=== PATIENT | female | born 1975 | race Caucasian/White ===

== ENCOUNTER → 2018-08-28 | Outpatient (CLI) | payer BC, SELFPAY ==
[2018-08-28 10:11] VITALS: BMI 34.3
[2018-08-28 14:15] LABS: Mucous, Urine 0 SEEN /hpf (<or=2+)
[2018-08-28 14:22] LABS: Color, Urine Yellow (Yellow); Glucose, Dipstick Normal (Normal); Ketone-Dipstick Negative (Negative); Leukocyte Esterase-Dipstick 500 /ul (Negative); Nitrite-Dipstick Positive (Negative); Occult Blood-Urine 250 /ul (Negative); Protein-Dipstick 100 mg/dl (Negative); Specific Gravity, Urine 1.015 (1.002-1.030); Urine Bilirubin Dipstick Negative (Negative); Urine Clarity Cloudy (Clear); Urine Urobilinogen Normal (Normal); Urine pH 6.5 (5.0 - 8.0)
[2018-08-28 14:29] LABS: Bacteria 3+ /hpf (None Seen); Red Blood Cells-Urine 5-10 SEEN /hpf (0-5); Squamous Epithelial Cells - UA 0-5 SEEN /hpf (5-10); White Blood Cells 50-100 SEEN /hpf (0-5)
== END | disposition home or self-care (01) ==
PROVIDERS: Referring Provider Physician Assistant Medical; Visit Provider Physician Assistant Medical
DX: N30.01 Acute cystitis with hematuria (principal)
CPT/HCPCS: 81001; 87077; 87086; 87088; 87186

== ENCOUNTER → 2018-09-08 | Outpatient (CLI) | payer BC, SELFPAY ==
[2018-09-08 09:46] VITALS: BMI 34.3
[2018-09-08 14:50] LABS: Mucous, Urine 0 SEEN /hpf (<or=2+)
[2018-09-08 14:56] LABS: Color, Urine Yellow (Yellow); Glucose, Dipstick Normal (Normal); Ketone-Dipstick Negative (Negative); Leukocyte Esterase-Dipstick 500 /ul (Negative); Nitrite-Dipstick Positive (Negative); Occult Blood-Urine 150 /ul (Negative); Protein-Dipstick 100 mg/dl (Negative); Urine Bilirubin Dipstick Negative (Negative); Urine Clarity Cloudy (Clear); Urine Urobilinogen Normal (Normal)
[2018-09-08 15:02] LABS: White Blood Cells >100 SEEN /hpf (0-5)
[2018-09-08 15:03] LABS: Red Blood Cells-Urine 5-10 SEEN /hpf (0-5)
[2018-09-08 15:04] LABS: Bacteria 2+ /hpf (None Seen); Squamous Epithelial Cells - UA 5-10 SEEN /hpf (5-10)
== END | disposition home or self-care (01) ==
LOC: LABSPEC 14:45
PROVIDERS: Referring Provider Physician Assistant Medical; Visit Provider Physician Assistant Medical
DX: N39.0 Urinary tract infection, site not specified (principal)
CPT/HCPCS: 81001; 87077; 87086; 87088; 87186

== ENCOUNTER → 2019-02-18 16:08 | Outpatient (CLI) | payer BC, SELFPAY ==
[2019-02-18 09:18] VITALS: BMI 34.3
[2019-02-18 16:11] LABS: Mucous, Urine 0 SEEN /hpf (<or=2+)
[2019-02-18 16:38] LABS: Color, Urine Yellow (Yellow); Glucose, Dipstick Normal (Normal); Ketone-Dipstick 5 mg/dl (Negative); Leukocyte Esterase-Dipstick 500 /ul (Negative); Nitrite-Dipstick Positive (Negative); Occult Blood-Urine 50 /ul (Negative); Protein-Dipstick 30 mg/dl (Negative); Urine Bilirubin Dipstick Negative (Negative); Urine Clarity Cloudy (Clear); Urine Urobilinogen Normal (Normal)
[2019-02-18 17:19] LABS: Bacteria 2+ /hpf (None Seen); Red Blood Cells-Urine 5-10 SEEN /hpf (0-5); Squamous Epithelial Cells - UA 0-5 SEEN /hpf (5-10); White Blood Cells >100 SEEN /hpf (0-5)
== END ==
PROVIDERS: Referring Provider Physician Assistant Medical; Visit Provider Physician Assistant Medical
DX: R30.0 Dysuria (principal)
CPT/HCPCS: 81001; 87086; 87088; 87186

== ENCOUNTER 2021-07-31 10:05 | Emergency (ER) | payer MEDICAID, SELFPAY ==
[2021-07-31 10:07] VITALS: BP 142/124; PULSE 95; RESP 22; TEMP 36.6; O2SAT 99; BMI 41.0
--- NOTE | 2021-07-31 10:26 | EDS_ITS ---
HPI History of Present Illness HPI Narrative: Patient presents with right hip pain that has been getting worse over the past couple weeks. Patient states that it got worse over the past 2 days. Patient states today she was bending and she felt a pop in her right hip. Patient states the pain is been constant. Patient describes her pain as burning. Patient states it is mainly over the posterior aspect of her right hip. Patient states it is worse with weightbearing. Patient admits to some tingling going down her right leg. Patient denies any weakness. Patient denies any bowel or bladder changes. Patient denies any saddle anesthesia. Chief Complaint: Lower Extremity Injury Informant: patient Onset/Context/Timing Onset: Weeks Context: Gradual Onset Timing: Continuous Quality of Pain: Burning Location: Right hip Worsened by: Weightbearing Relieved by: Nothing Associated Symptoms Associated Symptoms: Positive for Parasthesia; Negative for Weakness or Loss of Funtion PFSH [facility] Medical History Acute maxillary sinusitis, unspecified Home Medications norgestimate 0.25 mg-ethinyl estradiol 35 mcg tablet (Sprintec (28)) 1 tab PO DAILY 02/11/18 [History Last Taken Unknown] prednisone 10 mg tablet See Rx Instructions PO DAILY #30 tabs 12/27/20 [Rx Last Taken Unknown] hydrocodone-acetaminophen 5-325mg 5mg-325mg 1 tab PO Q6H PRN PRN Pain 3 days #10 TABLETS 07/31/21 [Rx Last Taken Unknown] Allergy/AdvReac Type Severity Reaction Status Date / Time No Known Allergies Allergy Verified 07/31/21 10:07 Surgical History History of delivery Social History Smoking Status: Never smoker alcohol intake: never ROS ROS ED Constitutional Constitutional ED: Denies chills or fever(s) Eyes Eyes: Denies blurry vision or change in vision ENT ENT ED: Denies rhinorrhea or sore throat Cardiovascular Cardiovascular: Denies chest pain or palpitations Respiratory/Chest Respiratory/Chest: Denies cough or dyspnea Gastrointestinal Gastrointestinal: Denies nausea or vomiting Genitourinary Genitourinary ED: Denies dysuria or hematuria Musculoskeletal Musculoskeletal: Reports back pain and neck pain Integumentary Denies abscess or rash Neurologic Neurologic: Reports paresthesias RLE; Denies headache(s) or weakness Allergic/Immunologic Allergic/Immunologic ED: Denies mouth swelling or urticaria EXAM Physical Exam Const Vital Signs: 07/31/21 10:07 Temperature 97.8 F Temperature Source Temporal Pulse Rate 95 Respiratory Rate 22 H Blood Pressure 142/124 H Blood Pressure Mean 130 Pulse Ox 99 Oxygen Delivery Method Room Air Positive well nourished, well developed and obese General Appearance ED: well developed Nutritional Appearance: obese HEENT Reports moist mucous membranes Neck full ROM Extremity Extremity Narrative: There is tenderness over the posterior lateral aspect of the right hip. There is no obvious deformity noted. Range of motion was limited in all motions of the right hip secondary to pain. Pedal pulses are equal bilaterally. Sensation was intact to light touch bilaterally in the lower extremities. Strength is 5/5 bilaterally in the lower extremities. General Extremety ED: Yes weight-bearing difficulty General Extremity: weight-bearing difficulty Neuro oriented x3, CN's II-XII intact bilaterally, moves all extremities and no sensory deficits noted Sensorium / Orientation: alert, oriented to person, oriented to place and orie nted to time Motor Exam: strength 5/5 throughout Psych mental status grossly normal MDM MDM MDM Narrative Medical decision making narrative: X-rays of the right hip were obtained. There are 3 views. On my interpretation, there is no acute fracture or dislocation. There some degenerative changes noted. Radiologist also interpreted the x-ray and agrees. Patient was given an injection of morphine here. Patient is feeling better on reevaluation. Patient was given a prescription for [place]. Patient was given crutches. Patient instructed to use ice to the area. Patient was instructed to follow-up with her primary care physician in 5 to 7 days. Patient understood and was agreeable with the plan. All questions were answered. Radiography Diagnostic Testing: Clinical Impression(s) from Imaging Studies Hip/Pelvis X-Ray 07/31/21 10:30 IMPRESSION: Sclerosis of the symphysis pubis. Electronically Signed: Abhilash Gaming MD at 11:50 EDT , Discharge Plan Triage Chief Complaint: Lower Extremity Injury ED Provider: Abhilash Martinez Dx/Rx/DC Orders Clinical Impression: Strain of right hip, Morbid obesity with BMI of 40.0-44.9, adult Instructions: ED Hip Strain Prescriptions: New hydrocodone-acetaminophen [hydrocodone-acetaminophen] 5-325 mg tablet 1 tab PO Q6H PRN PRN (Reason: Pain) 3 Days Qty: 10 0RF No Action norgestimate-ethinyl estradiol [Sprintec (28)] 0.25-35 mg-mcg tablet 1 tab PO DAILY prednisone 10 mg tablet See Rx Instructions PO DAILY Qty: 30 0RF Rx Instructions: 40 mg PO daily x 3 days, 30 mg PO daily x 3 days, 20 mg PO daily x 3 days, 10 mg PO daily x 3 days Primary Care Provider: Hiram Moreland Referrals: Hiram Moreland MD [Primary Care Provider] - 3-5 Days Disposition Disposition: Home, Self Care
--- NOTE | 2021-07-31 10:30 | RAD_ITS ---
STUDY: X-RAY - PELVIS AND RIGHT HIP REASON FOR EXAM: Female, 46 years old. Injury/Pain TECHNIQUE: 3 views of the pelvis and hip. COMPARISON: None. FINDINGS: There is a non-specific bowel gas pattern. Normal visualized soft tissue structures. Normal bilateral iliac wings, sacroiliac joints and visualized sacrum. Normal bilateral superior and inferior pubic rami. There are degenerative changes of the pubic symphysis with articular narrowing and sclerosis. Normal bilateral ischial tuberosities. Normal visualized femoral head. Normal acetabulum. Normal hip joint. RAD/HIP, UNI W/ Pelvis 2-3 Views IMPRESSION: Sclerosis of the symphysis pubis. Electronically Signed: Abhilash Gaming MD at 11:50 EDT ,
[2021-07-31] MEDS: Morphine 4 MG/ML Syringe IV (11:17)
[2021-07-31 13:15] VITALS: BP 118/67; PULSE 92; RESP 15; O2SAT 98
== END 2021-07-31 13:16 | disposition home or self-care (01) ==
PROVIDERS: Emergency Provider Emergency Medicine; PCP Family Medicine; Visit Provider Emergency Medicine
DX: S73.101A Unspecified sprain of right hip, initial encounter (principal); E66.01 Morbid (severe) obesity due to excess calories; Z68.41 Body mass index [BMI] 40.0-44.9, adult; X58.XXXA Exposure to other specified factors, initial encounter; Z23 Encounter for immunization
CPT/HCPCS: 73502; 90471; 96374; 99285; A4216

== ENCOUNTER → 2022-01-23 | Outpatient (CLI) | payer MEDICAID, SELFPAY ==
[2022-01-23 10:14] LABS: Mucous, Urine 0 SEEN /hpf (<or=2+); Red Blood Cells-Urine 0 SEEN /hpf (0-5)
[2022-01-23 10:34] LABS: Color, Urine Yellow (Yellow); Glucose, Dipstick Normal (Normal); Ketone-Dipstick 5 mg/dl (Negative); Leukocyte Esterase-Dipstick 500 /ul (Negative); Nitrite-Dipstick Positive (Negative); Occult Blood-Urine 250 /ul (Negative); Protein-Dipstick 100 mg/dl (Negative); Urine Bilirubin Dipstick Negative (Negative); Urine Clarity Turbid (Clear); Urine Urobilinogen Normal (Normal)
[2022-01-23 10:49] LABS: Squamous Epithelial Cells - UA 5-10 SEEN /hpf (5-10); White Blood Cells >100 SEEN /hpf (0-5)
[2022-01-23 10:50] LABS: Bacteria 2+ /hpf (None Seen)
== END | disposition home or self-care (01) ==
LOC: LABSPEC 10:07
PROVIDERS: PCP Family Medicine; Referring Provider Physician Assistant Surgical; Visit Provider Physician Assistant Surgical
DX: R30.0 Dysuria (principal)
CPT/HCPCS: 81001; 87077; 87086; 87088; 87186

== ENCOUNTER 2022-03-31 20:37 | Emergency (ER) | payer OTHER, MEDICAID, SELFPAY ==
[2022-03-31 20:38] VITALS: BP 125/113; PULSE 94; RESP 15; TEMP 36.5; O2SAT 98; BMI 39.5
--- NOTE | 2022-03-31 21:01 | US_ITS ---
EXAM: US ABDOMEN LIMITED, RIGHT UPPER QUADRANT CLINICAL INDICATION: PAIN TECHNIQUE: Real-time ultrasound of the right upper quadrant with image documentation. This report was created using [employer] report generation technology. COMPARISON: None. FINDINGS: LIVER: The liver measures 20.3 cm in length. The liver is increased in echogenicity. No intrahepatic biliary ductal dilation. GALLBLADDER: There is a large echogenic structure in the gallbladder compatible with a large gallstone. This measures 3.2 cm. Gallbladder wall measures 2 mm. The second smaller stone in the gallbladder neck. No pericholecystic fluid. Negative sonographic Kern''s sign. COMMON BILE DUCT: Common bile duct measures 4 mm. The proximal common bile duct is within normal limits for the patient''s age. PANCREAS: Unremarkable as visualized. No focal abnormality is demonstrated in the pancreas. No pancreatic ductal dilatation. RIGHT KIDNEY: The right kidney measures 10.8 x 4.8 x 4.9 cm. There is no hydronephrosis. No shadowing calculus. No focal lesion or perinephric collection is demonstrated. US/Gallbladder IMPRESSION: 1. Cholelithiasis with no sonographic evidence of cholecystitis. 2. Hepatomegaly. There is fatty infiltration of the liver. Electronically Signed: Anshul De León MD at 22:15 EST ,
[2022-03-31 21:15] LABS: Absolute Lymphocyte Count 2.31 X10^3/uL (0.83-4.51); Absolute Neutrophil Count 4.1 X10^3/uL (2.0-7.7); Basophil# 0.05 X10^3/uL; Basophil% 0.7 % (0-1); Eosinophil# 0.41 X10^3/uL; Eosinophils% 5.5 % (0-5); Hematocrit 38.2 % (37-47); Hemoglobin 12.5 g/dL (12.0-15.0); Lymphocyte # 2.31 X10^3/ul (0.83-4.51); Lymphocyte % 31.2 % (19-41); Mean Corp Hgb Conc 32.7 g/dL (32-36); Mean Corpuscular Volume 85.5 fL (81-99); Mean Platelet Vol. 9.7 fl (6.2-12.0); Monocyte# 0.52 X10^3/uL; NRBC Flagged by Analyzer 0 % (0-5); Neutrophil # 4.09 X10^3/uL (2.7-7.7); Neutrophil % 55.2 % (47-70); Platelet Count 344 K/mm3 (150-450); RBC Distribution Width CV 12.6 % (11.6-14.6); Red Blood Count 4.47 M/mm3 (4.2-5.4); White Blood Count 7.4 K/mm3 (4.4-11.0)
[2022-03-31 21:21] LABS: Internal QC Validated? YES +Cl - CLEAR BKGD; Pregnancy, Serum, hCG Quali. NEGATIVE Negative
[2022-03-31] MEDS: Ondansetron 4 MG/2 ML Vial IV (21:26)
[2022-03-31] MEDS: 0.9% Normal Saline 1,000 ML 1000 ML IV (21:26)
[2022-03-31] MEDS: Morphine 4 MG/ML Syringe IV (21:26)
[2022-03-31 21:31] LABS: ALB/GLOB Ratio 0.8 RATIO (0.9-2.4); AST(SGOT) 14 U/L (15-37); Alanine Aminotransfer ALT/SGPT 23 U/L (13-56); Albumin, Serum 3.1 g/dL (3.2-5.0); Alkaline Phosphatase 98 U/L (45-117); Anion Gap 11 (5-15); BUN 13 mg/dL (7-18); BUN/Creat Ratio 10.3 RATIO (10-20); Calcium,Total 9.2 mg/dL (8.5-10.1); Chloride 103 mmol/L (98-107); Creatinine, Serum 1.26 mg/dL (0.55-1.02); EST Glomerular Filtration Rate 49 mL/min (>60); Est Glom Filt Rate - Afr Amer 59 mL/min (>60); Estimated Creatinine Clearance 57.48 ml/min; Globulin 3.7 g/dL (2.2-4.2); Glucose 110 mg/dL (74-106); Lipase 174 U/L (73-393); Protein, Total 6.8 g/dL (6.4-8.2); Sodium Level 142 mmol/L (136-145)
--- NOTE | 2022-03-31 22:18 | ED.VIS.GI ---
HPI HPI - GI History of Present Illness Chief Complaint: Abd Pain Informant: patient Abdominal Pain/Flank Pain Onset: Today Context: Gradual Onset Timing: Continuous Quality: Sharp Location: RUQ Worsened by: Food Relieved by: Nothing Nausea/Vomiting/Emesis GI Symptom: Positive for Nausea; Negative for Vomiting Diarrhea/Melena/Hematochezia GI Symptom: Negative for Diarrhea, Melena or Hematochezia Associated Symptoms Associated Symptoms: Negative for Dysuria, Frequency or Hematuria Narrative Narrative: Patient presents with right upper quadrant abdominal pain that began tonight. Patient states that came on gradually. Patient states that her pain began approxi-2 hours after eating chili tonight. Patient states that her pain became worse when she laid down and tried to go to bed. Patient states her pain is over the right upper quadrant. Patient describes it as sharp. Patient denies any radiation of the pain. Patient states she had an episode of pain in her chest and pain between her shoulder blades yesterday but states this has resolved and she has not had any back pain or chest pain today. Patient admits to nausea but denies any vomiting. Patient denies any diarrhea, melena, or hematochezia. [facility] Medical History Acute maxillary sinusitis, unspecified Home Medications norgestimate 0.25 mg-ethinyl estradiol 35 mcg tablet (Sprintec (28)) 1 tab PO DAILY 02/11/18 [History Last Taken Unknown] hydrochlorothiazide 25 mg tablet 25 mg PO DAILY 03/31/22 [History Last Taken Unknown] hydrocodone-acetaminophen 5-325mg 5mg-325mg 1 tab PO Q6H PRN PRN Pain 3 days #10 TABLETS 03/31/22 [Rx Last Taken Unknown] ondansetron 4 mg disintegrating tablet 4 mg PO Q8H PRN PRN Nausea #10 tabs 03/31/22 [Rx Last Taken Unknown] Allergy/AdvReac Type Severity Reaction Status Date / Time No Known Allergies Allergy Verified 03/31/22 20:47 Surgical History History of delivery Social History Smoking Status: Never smoker alcohol intake: never ROS ROS ED Constitutional Constitutional ED: Denies chills or fever(s) Eyes Eyes: Denies blurry vision or change in vision ENT ENT ED: Denies rhinorrhea or sore throat Cardiovascular Cardiovascular: Reports chest pain; Denies palpitations Respiratory/Chest Respiratory/Chest: Denies cough or dyspnea Gastrointestinal Gastrointestinal: Reports abdominal pain and nausea; Denies vomiting Genitourinary Genitourinary ED: Denies dysuria or hematuria Musculoskeletal Musculoskeletal: Reports back pain; Denies neck pain Integumentary Denies abscess or rash Neurologic Neurologic: Denies headache(s) or weakness Allergic/Immunologic Allergic/Immunologic ED: Denies mouth swelling or urticaria EXAM Physical Exam Const Vital Signs: 03/31/22 20:38 Temperature 97.7 F L Temperature Source Temporal Pulse Rate 94 Respiratory Rate 15 Blood Pressure 125/113 H Blood Pressure Mean 117 Pulse Ox 98 Oxygen Delivery Method Room Air Positive well nourished, well developed and obese General Appearance ED: well developed and NAD Nutritional Appearance: obese HEENT Reports moist mucous membranes Neck supple and no JVD Resp normal respiratory effort and clear to auscultation bilaterally Cardio regular rate, regular rhythm and no murmurs GI normal to inspection, nondistended, normoactive bowel sounds Palpation: soft and tender epigastric, RUQ and Kern's sign; Negative for guarding or rebound tenderness present Extremity normal to inspection General Extremety ED: Negative for edema or tenderness General Extremity: Negative for edema Neuro oriented x3, CN's II-XII intact bilaterally and no sensory deficits noted Sensorium / Orientation: alert Motor Exam: strength 5/5 throughout Psych mental status grossly normal Skin no rashes or lesions noted MDM MDM MDM Narrative Medical decision making narrative: Differential diagnosis includes cholelithiasis/cholecystitis, peptic ulcer disease, duodenal ulcer, gastroenteritis, pyelonephritis, and pancreatitis. CBC will be obtained to assess for leukocytosis and anemia. Comprehensive metabolic profile will be obtained to assess for electrolyte abnormality, renal function, and hepatic function. Lipase will be obtained to assess for pancreatitis. Serum hCG will be obtained to assess for status. Right upper quadrant ultrasound will be obtained to assess for cholelithiasis and cholecystitis. Lab Data Attestation: I reviewed the patient's lab results. Lab results narrative: CBC was reviewed and was within normal limits. Comprehensive metabolic profile was reviewed. There is mild hypokalemia of 3.0. Creatinine was slightly elevated at 1.26. The remainder was within normal limits. Lipase was normal at 174. Serum hCG was reviewed and was negative. Labs: Laboratory Results - last 24 hr 03/31/22 03/31/22 03/31/22 21:08 21:08 21:08 WBC 7.4 RBC 4.47 Hgb 12.5 Hct 38.2 MCV 85.5 MCH 28.0 MCHC 32.7 RDW Std Deviation 39.0 RDW Coeff of Byron 12.6 Plt Count 344 MPV 9.7 Immature Gran % (Auto) 0.400 Neut % (Auto) 55.2 Lymph % (Auto) 31.2 Terrell % (Auto) 7.0 Eos % (Auto) 5.5 H Baso % (Auto) 0.7 Absolute Neuts (auto) 4.1 Absolute Lymphs (auto) 2.31 Nucleated RBC % 0 Sodium 142 Potassium 3.0 L Chloride 103 Carbon Dioxide 28.0 Anion Gap 11 BUN 13 Creatinine 1.26 H Estim Creat Clear Calc 57.48 Est GFR (MDRD) Af Amer 59 L Est GFR (MDRD) Non-Af 49 L BUN/Creatinine Ratio 10.3 Glucose 110 H Calcium 9.2 Total Bilirubin 0.20 AST 14 L ALT 23 Alkaline Phosphatase 98 Total Protein 6.8 Albumin 3.1 L Globulin 3.7 Albumin/Globulin Ratio 0.8 L Lipase 174 Serum , Qual NEGATIVE Radiography Diagnostic Testing: Clinical Impression(s) from Imaging Studies Gallbladder Ultrasound 03/31/22 21:01 IMPRESSION: 1. Cholelithiasis with no sonographic evidence of cholecystitis. 2. Hepatomegaly. There is fatty infiltration of the liver. Electronically Signed: Anshul De León MD at 22:15 EST , Right upper quadrant ultrasound was obtained. On my independent interpretation, there is cholelithiasis but no evidence of cholecystitis. There is no gallbladder wall thickening or dilation of the common bile duct. Radiologist also interpreted the x-ray. There is fatty infiltration of the liver. Treatment and Re-Evaluation Narrative: Patient was given IV fluids, morphine, and Zofran. Patient was feeling somewhat better on reevaluation. Patient was advised of her findings. Patient was advised that since her white blood cell count is normal and there is no evidence of acute cholecystitis on ultrasound, she does not need to be admitted to the hospital for emergent cholecystectomy. Patient was given a referral for general surgery for follow-up care for possible outpatient cholecystectomy. Patient was given prescription for [place] and Zofran. Patient was instructed to eat a bland diet. Patient was instructed to avoid fried foods, fatty foods, greasy foods. Patient was instructed return if worse in any way. Patient understood and was agreeable with the plan. All questions were answered. Discharge Plan Triage Chief Complaint: Abd Pain ED Provider: Abhilash Martinez Dx/Rx/DC Orders Clinical Impression: Right upper quadrant abdominal pain, Cholelithiasis Instructions: ED Abdominal Pain Gallstone Poss, ED Gallstones with Biliary Colic Prescriptions: New hydrocodone-acetaminophen [hydrocodone-acetaminophen] 5-325 mg tablet 1 tab PO Q6H PRN PRN (Reason: Pain) 3 Days Qty: 10 0RF ondansetron [ondansetron] 4 mg tablet,disintegrating 4 mg PO Q8H PRN PRN (Reason: Nausea) Qty: 10 0RF No Action norgestimate-ethinyl estradiol [Sprintec (28)] 0.25-35 mg-mcg tablet 1 tab PO DAILY hydrochlorothiazide 25 mg tablet 25 mg PO DAILY Label Comments: TAKE 1 TABLET BY MOUTH ONCE DAILY Primary Care Provider: Hiram Moreland Referrals: Hiram Moreland MD [Primary Care Provider] - 3-5 Days Suresh Patterson MD [Med Staff - Active Staff] - 3-5 Days Disposition Disposition: Home, Self Care
[2022-03-31 22:48] VITALS: BP 139/77; PULSE 61; PULSE 65; RESP 14; RESP 15; O2SAT 98; O2SAT 99
== END 2022-03-31 23:01 | disposition home or self-care (01) ==
PROVIDERS: Emergency Provider Emergency Medicine; PCP Family Medicine; Visit Provider Emergency Medicine
DX: K80.20 Calculus of gallbladder without cholecystitis without obstruction (principal); R10.11 Right upper quadrant pain
CPT/HCPCS: 76705; 80053; 83690; 84703; 85025; 96361; 96374; 96375; 99283; J7030; A4216; J2405

== ENCOUNTER → 2022-10-31 | Outpatient (CLI) | payer OTHER, MEDICAID, SELFPAY | END | disposition home or self-care (01) | PROVIDERS: PCP Family Medicine; Visit Provider Physician Assistant Medical | DX: N39.0 Urinary tract infection, site not specified (principal) | CPT/HCPCS: 87077; 87086; 87088; 87186 ==

== ENCOUNTER 2023-01-30 03:15 | Emergency (ER) | payer OTHER, MEDICAID, SELFPAY ==
[2023-01-30 03:16] VITALS: BP 172/92; PULSE 83; RESP 16; TEMP 36.1; O2SAT 98; BMI 36.6
--- NOTE | 2023-01-30 03:26 | EDS_ITS ---
HPI History of Present Illness Chief Complaint: Abd Pain [facility] Medical History Acute maxillary sinusitis, unspecified Home Medications norgestimate 0.25 mg-ethinyl estradiol 35 mcg tablet (Sprintec (28)) 1 tab PO DAILY 02/11/18 [History Last Taken Unknown] hydrochlorothiazide 25 mg tablet 25 mg PO DAILY 03/31/22 [History Last Taken Unknown] semaglutide (weight loss) 1.7 mg/0.75 mL subcutaneous pen injector (Wegovy) mg subcut 10/31/22 [History Last Taken Unknown] benzonatate 200 mg capsule 200 mg PO TID PRN cough #20 caps 01/18/23 [Rx Last Taken Unknown] dexamethasone 6 mg tablet 6 mg PO DAILY #5 tabs 01/18/23 [Rx Last Taken Unknown] amoxicillin 875 mg-potassium clavulanate 125 mg tablet 1 tab PO BID #14 tabs 01/30/23 [Rx Last Taken Unknown] ondansetron 4 mg disintegrating tablet 4 mg PO Q8H PRN PRN Nausea #10 tabs 01/30/23 [Rx Last Taken Unknown] tirzepatide (weight loss) 5 mg/0.5 mL subcutaneous pen injector (Zepbound) 5 mg subcut QWEEK 01/30/23 [History Last Taken Unknown] Allergy/AdvReac Type Severity Reaction Status Date / Time No Known Allergies Allergy Verified 01/30/23 03:15 Surgical History History of delivery Social History Smoking Status: Never smoker alcohol intake: never EXAM Physical Exam Const Vital Signs: 01/30/23 03:16 01/30/23 03:54 01/30/23 05:15 Temperature 96.9 F L Temperature Source Temporal Pulse Rate 83 84 Respiratory Rate 16 16 Blood Pressure 172/92 H 130/75 H 145/74 H Blood Pressure Mean 118 93 97 Pulse Ox 98 98 Oxygen Delivery Method Room Air Room Air MDM MDM MDM Narrative Medical decision making narrative: HISTORY OF PRESENT ILLNESS: 47year old female presents with abdominal pain. Presents with acute onset of epigastric abdominal pain. No alcohol use. No vomiting no nausea. No history of gallstones. States this does not feel like her gallstone pain. She states pain is sharp and nonradiating. Last bowel was yesterday. Notes history of C- section but no other abdominal surgeries. Denies fever. Denies any chest pain or shortness of breath. Denies any urinary complaints no vaginal bleeding. REVIEW OF SYSTEMS: All other systems reviewed and are negative except as noted in the history of present illness. At least 10 review of systems reviewed and are negative except as noted in history of present illness. PHYSICAL EXAM: Nursing triage notes reviewed, Vital signs reviewed Constitutional: please see mdm HENT: MMM Eyes: Pupils equal round and reactive to light, Extraocular muscles intact Neck: No stridor, no JVD, full neck ROM Lungs: Clear to auscultation, No wheezing or rales. No increased work of breathing, no conversational dyspnea, no accessory muscle use, no nasal flaring. No respiratory distress noted Heart: Regular rate and rhythm, No murmurs, No rubs and No gallops, 2+ distal pulses (radial, femoral, posterior tibial) in all extremities Abdomen: Soft, epigastric upper quadrant TTP, positive Kenr sign, no peritoneal signs rebound or guarding. : No CVAT Extremities: No edema Neuro: No focal neurological deficits, cranial nerves II through XII intact, 5/5 strength in all extremities. Intact sensation to light touch in all extremities, 2+ reflexes bilateral patella tendons. Normal gait. No ataxia. Skin: No rash or lesions noted MEDICAL DECISION MAKING: Chief Complaint: abdominal pain External records reviewed: Right upper quadrant ultrasound from March 2023 shows cholelithiasis with no cholecystitis, hepatomegaly and fatty filtration of the liver Factors affecting care: Hypertension, obesity Social determinants of health:none History obtained from others: none Consults: General surgery [facility] Narrative: Patient was initially hypertensive otherwise hemodynamically stable. Abdomen with diffuse epigastric tenderness, right upper quadrant tenderness, but negative Kern sign. There are no peritoneal signs. Given it was the middle the night we do not have ultrasound available I did obtain a screening CT scan. I ordered ultrasound as well in order to expedite patient getting the study. I treated the patient with IV narcotic pain medicine in the form of 4 mg morphine, Zofran and fluids. Given epigastric location patient's pain I also obtain EKG, chest x-ray and troponin value to rule out atypical myocardial ischemia I considered the following differential diagnosis: AAA, small bowel obstruction, abdominal perforation, appendicitis, pancreatitis, hepatobiliary pathology (acute cholecystitis), mesenteric ischemia, abnormalities such as pyelonephritis, nephrolithiasis ALL IMAGES (IF OBTAINED) HAVE BEEN PERSONALLY REVIEWED AND INTERPRETED BY MYSELF. EKG with normal sinus rhythm, normal axis, normal intervals, no STEMI Urine test is negative CMP with severe hypokalemia, no anion gap to suggest end-organ perfusion, no acute kidney injury LFTs with elevation in AST and ALT Lipase is wnl indicating no pancreatic inflammation. High-sensitivity troponin is negative, no evidence of myocardial ischemia I have personally reviewed the patient's chest x-ray. Chest x-ray is unremarkable for pulmonary edema, pneumothorax, pneumonia or focal cardiopulmonary abnormality. Upper quadrant ultrasound shows evidence of acute cholecystitis CT scan shows evidence of gallstones CBC shows leukocytosis suggestive of some inflammation, no anemia or thrombocytopenia noted The synthesis of the patient's history, physical exam labs images vital signs suggest acute cholecystitis. Consulted general surgery Dr. Flores at 6 AM. He states he will be in to see the patient. Dr. Flores recommended admission for surgery. Pt who was alert and orientedx3. She displayed capacity to make her own medical decisions. She chose to forego surgery, admission or further ED evaluation at this time stating she needed to go to work, take care of her children and she has a doctor an upcoming vacation in [place] that she would like to go to. Dr. Flores further Recommended augmentin and dispo with close follow-up and strict return precautions. . AMA note: I have recommended admission to the hospital, but the patient refuses. The risks (including but not limited to suffering and ) as well as the benefits were explained to the patient. Questions were sought and answered, the patient voiced understanding and accepts these risks. I have encouraged the patient to return to have their evaluation completed as we are glad to do so. Patient had capacity to make his or her own medical decisions. Patient was alert and orient x3 and of sound mind at time of discussion. I have also instructed the patient on the importance of follow-up and to return for any worsening or worrisome concerns. The patient appears competent to make medical decisions at this time. Total critical care time today provided was at least 35 minutes. This excludes separately billable procedures. Critical care time (if documented) is secondary to the patient having high probability of clinically significant/life threatening deterioration in the patient's condition which required my urgent intervention. Shared decision making: I will have a discussion with the patient and or visitors regarding risk/benefits of further testing or admission. They will be made aware of of the risk/benefits inherent in this decision they will be given the opportunity to voice understanding. Impression: 1. Acute cholecystitis 2. Hypokalemia Chintan Bautista DO Lab Data Labs: Laboratory Results - last 24 hr 01/30/23 01/30/23 01/30/23 03:20 03:50 05:09 WBC 11.2 H RBC 4.76 Hgb 13.7 Hct 40.3 MCV 84.7 MCH 28.8 MCHC 34.0 RDW Std Deviation 38.4 RDW Coeff of [place] 12.7 Plt Count 400 MPV 10.4 Immature Gran % (Auto) 0.400 Neut % (Auto) 60.5 Lymph % (Auto) 28.0 [place] % (Auto) 7.3 Eos % (Auto) 3.0 Baso % (Auto) 0.8 Absolute Neuts (auto) 6.8 Absolute Lymphs (auto) 3.12 Nucleated RBC % 0 Sodium 138 Potassium 2.4 L* Chloride 101 Carbon Dioxide 29.0 Anion Gap 8 BUN 11 Creatinine 1.07 H Estim Creat Clear Calc 66.98 Est GFR (MDRD) Af Amer 71 Est GFR (MDRD) Non-Af 59 L BUN/Creatinine Ratio 10.3 Glucose 103 Calcium 9.5 Total Bilirubin 0.40 AST 260 H ALT 587 H Alkaline Phosphatase 99 Troponin I High Sens 10 Total Protein 7.6 Albumin 3.4 Globulin 4.2 Albumin/Globulin Ratio 0.8 L Lipase 61 Serum , Qual NEGATIVE Urine Color Yellow Urine Clarity Clear Urine pH 6.5 Ur Specific [place] 1.015 Urine Protein 30 H Urine Glucose (UA) Normal Urine Ketones Negative Urine Occult Blood Negative Urine Nitrite Negative Urine Bilirubin Negative Urine Urobilinogen Normal Ur Leukocyte Esterase 25 H Urine RBC 0 SEEN Urine WBC 0 SEEN Ur Squamous Epith Cells 5-10 SEEN Urine Bacteria 2+ WBC Casts 0-5 SEEN Urine Mucus 0 SEEN Radiography Diagnostic Testing: Clinical Impression(s) from Imaging Studies Abdomen/Pelvis CT 01/30/23 03:33 IMPRESSION: 1. Cholelithiasis with distended gallbladder 2. Hepatomegaly and hepatic steatosis 3. Uterine fibroids Electronically Signed: Benoit Coughlin MD at 5:46 EST , Gallbladder Ultrasound 01/30/23 03:33 IMPRESSION: 1. Cholelithiasis with secondary signs of acute cholecystitis 2. Hepatic steatosis and hepatomegaly Electronically Signed: Benoit Coughlin MD at 5:42 EST , Chest X-Ray 01/30/23 04:45 IMPRESSION: No radiographic evidence of acute cardiopulmonary disease. Electronically Signed: Benoit Coughlin MD at 5:43 EST , Discharge Plan Triage Chief Complaint: Abd Pain ED Provider: Chintan Bautista Dx/Rx/DC Orders Clinical Impression: Acute cholecystitis Instructions: ED Cholecystitis, Confirmed, ED Hypokalemia, ED Potassium-Rich Foods Prescriptions: New amoxicillin-pot clavulanate 875-125 mg tablet 1 tab PO BID Qty: 14 0RF ondansetron 4 mg tablet,disintegrating 4 mg PO Q8H PRN PRN (Reason: Nausea) Qty: 10 0RF No Action norgestimate-ethinyl estradiol [Sprintec (28)] 0.25-35 mg-mcg tablet 1 tab PO DAILY Wegovy 1.7 mg/0.75 mL pen injector subcut Patient Comments: inject 0.75 milliliters subcutaneously every week dexamethasone 6 mg tablet 6 mg PO DAILY Qty: 5 0RF benzonatate 200 mg capsule 200 mg PO TID PRN (Reason: cough) Qty: 20 0RF hydrochlorothiazide 25 mg tablet 25 mg PO DAILY Patient Comments: TAKE 1 TABLET BY MOUTH ONCE DAILY Zepbound 5 mg/0.5 mL pen injector 5 mg SUBCUT QWEEK Patient Comments: inject 0.5 milliliter subcutaneously every week Stand Alone Forms: ED Work / School Excuse Primary Care Provider: Hiram Moreland Referrals: Jcarlos Flores MD [Med Staff - Active Staff] - Hiram Moreland MD [Primary Care Provider] - Activity Restrictions/Additional Instructions: Thank you for trusting us with your care today! Please take Tylenol (2 pills, 650 mg), ibuprofen (2 pills, 400 mg) every 6 hours as needed for pain and fever control. Please take antibiotic as prescribed until course complete. Please eat a potassium rich diet which includes foods such as cantaloupe, kale, spinach, bananas. Please return to the emergency department if your symptoms change or worsen. Specifically develop worsening abdominal pain, if you develop vomiting, if you lose consciousness, if you do not have bowel movements for greater than 7 days. Please follow with your primary care physician for further outpatient evaluation and management. Disposition Disposition: Home, Self Care
--- NOTE | 2023-01-30 03:33 | EKG12_ITS ---
Test Reason : ABD. PAIN Blood Pressure : / mmHG Vent. Rate : 073 BPM Atrial Rate : 073 BPM P-R Int : 154 ms QRS Dur : 094 ms QT Int : 404 ms P-R-T Axes : 007 079 068 degrees QTc Int : 445 ms Normal sinus rhythm Normal ECG Confirmed by OLENA KOLB, STEPHEN ([id number]), editorial director MARTHA FAJARDO ([id number]) on 02/01/2023 1:39:02 P M Referred By: SUKI Confirmed By:DONTE HYATT MD
--- NOTE | 2023-01-30 03:33 | US_ITS ---
INDICATION: PAIN EXAMINATION: US Gallbladder (abdomen limited) TECHNIQUE: Kc scale and color doppler imaging was performed of the right upper quadrant. COMPARISON: Right upper quadrant ultrasound from 03/31/2022 FINDINGS: LIVER: Hyperechoic liver parenchyma compatible with fatty infiltration. Focal fatty sparing adjacent to gallbladder fossa. No significant intrahepatic biliary ductal dilatation. The right lobe of liver measures 21.7 cm in length. GALLBLADDER AND BILIARY TREE: Distended gallbladder contains sludge and large shadowing gallstone measuring up to 3 cm diameter. Mildly thickened gallbladder wall measures 3.6 mm. The proximal common bile duct measures 5 mm. Sonographic Kern''s sign: Positive. PANCREAS: Unremarkable as visualized. RIGHT KIDNEY: Right kidney measures 10.9 cm in length. No hydronephrosis. No discrete right renal lesion demonstrated. VESSELS: Unremarkable as visualized. US/Gallbladder IMPRESSION: 1. Cholelithiasis with secondary signs of acute cholecystitis 2. Hepatic steatosis and hepatomegaly Electronically Signed: Benoit Coughlin MD at 5:42 EST ,
--- NOTE | 2023-01-30 03:33 | CT_ITS ---
INDICATION: Upper abdominal pain, nausea EXAMINATION: CT Abdomen And Pelvis W/ Contrast Injection TECHNIQUE: Helically acquired images were obtained of the abdomen and pelvis following IV contrast. 2-D reconstructions reviewed. A radiation dose optimization technique was used for this scan. IV Contrast dosage and agent: 100 cc [id number] Oral contrast: None. COMPARISON: Concurrent right upper quadrant ultrasound FINDINGS: LOWER CHEST: No acute findings within the imaged lung bases. Heart size within normal limits. LIVER: Fatty infiltration of liver. Prominent craniocaudal dimension of liver measuring 21.5 cm length. No concerning lesion. GALLBLADDER AND BILIARY TREE: Distended gallbladder contains large stone. No pericholecystic edema detected. Poorly visualized gallbladder wall thickness. No significant biliary ductal dilation. PANCREAS: No discrete mass or peripancreatic edema. SPLEEN: Normal size without concerning lesion. ADRENAL GLANDS: Unremarkable. KIDNEYS AND URETERS: Normal renal size and position. No perinephric edema or hydronephrosis. No concerning lesion. PERITONEUM: No significant free fluid. No peritoneal free air detected. RETROPERITONEUM: No retroperitoneal mass or pathologic fluid collection. BOWEL: No evidence of acute appendicitis. No bowel obstruction or significant bowel thickening. No focal inflammatory change. LYMPH NODES: No enlarged mesenteric or retroperitoneal lymph nodes. VESSELS: No acute findings. No abdominal aortic aneurysm. URINARY BLADDER: Unremarkable as visualized. REPRODUCTIVE ORGANS: There are 2 faintly enhancing versus partially calcified uterine fibroids. Largest fibroid at right uterine fundus measures approximately 2 cm diameter. ABDOMINAL WALL: scar noted. BONES: Intact with no suspicious osseous lesion. CT/Abdomen/Pelvis W IV Cont ONLY IMPRESSION: 1. Cholelithiasis with distended gallbladder 2. Hepatomegaly and hepatic steatosis 3. Uterine fibroids Electronically Signed: Benoit Coughlin MD at 5:46 EST ,
[2023-01-30] MEDS: Morphine 4 MG/ML Syringe IV (03:49)
[2023-01-30] MEDS: Ondansetron 4 MG/2 ML Vial IV (03:49)
[2023-01-30] MEDS: Ketorolac 15 MG/ML Vial IV (03:49)
[2023-01-30] MEDS: 0.9% Normal Saline (1000mL) 1,000 ML 1000 ML IV (03:50)
[2023-01-30 03:54] VITALS: BP 130/75
[2023-01-30 04:27] LABS: Internal QC Validated? YES +Cl - CLEAR BKGD; Pregnancy, Serum, hCG Quali. NEGATIVE Negative
[2023-01-30 04:41] LABS: ALB/GLOB Ratio 0.8 RATIO (0.9-2.4); AST(SGOT) 260 U/L (15-37); Alanine Aminotransfer ALT/SGPT 587 U/L (13-56); Albumin, Serum 3.4 g/dL (3.2-5.0); Alkaline Phosphatase 99 U/L (45-117); Anion Gap 8 (5-15); BUN 11 mg/dL (7-18); BUN/Creat Ratio 10.3 RATIO (10-20); Calcium,Total 9.5 mg/dL (8.5-10.1); Chloride 101 mmol/L (98-107); Creatinine, Serum 1.07 mg/dL (0.55-1.02); EST Glomerular Filtration Rate 59 mL/min (>60); Est Glom Filt Rate - Afr Amer 71 mL/min (>60); Estimated Creatinine Clearance 66.98 ml/min; Globulin 4.2 g/dL (2.2-4.2); Glucose 103 mg/dL (74-106); Lipase 61 U/L (13-75); Potassium 2.4 mmol/L (3.5-5.1); Protein, Total 7.6 g/dL (6.4-8.2); Sodium Level 138 mmol/L (136-145); Troponin-I HS 10 pg/mL (3.0-54.0)
--- NOTE | 2023-01-30 04:45 | RAD_ITS ---
INDICATION: Epigastric abdominal pain EXAMINATION/TECHNIQUE: X-RAY - XR Chest 1 View COMPARISON: None. FINDINGS: LINES/DEVICES: None. LUNGS: No pulmonary edema or focal airspace consolidation. No sizable pleural effusion. No pneumothorax detected. MEDIASTINUM AND CARDIOVASCULAR STRUCTURES: Heart size within normal limits. Mediastinal contours unremarkable. BONES AND SOFT TISSUES: No acute findings. RAD/Chest 1 View (Portable) IMPRESSION: No radiographic evidence of acute cardiopulmonary disease. Electronically Signed: Benoit Coughlin MD at 5:43 EST ,
[2023-01-30] MEDS: Potassium Chloride Oral Tablet 20 MEQ 60 MEQ PO (04:57)
[2023-01-30 05:15] VITALS: BP 145/74; PULSE 84; RESP 16; O2SAT 98
[2023-01-30 05:17] LABS: Mucous, Urine 0 SEEN /hpf (<or=2+); Red Blood Cells-Urine 0 SEEN /hpf (0-5); White Blood Cells 0 SEEN /hpf (0-5)
[2023-01-30 05:32] LABS: Glucose, Dipstick Normal (Normal); Ketone-Dipstick Negative (Negative); Leukocyte Esterase-Dipstick 25 /ul (Negative); Nitrite-Dipstick Negative (Negative); Occult Blood-Urine Negative /ul (Negative); Protein-Dipstick 30 mg/dl (Negative); Specific Gravity, Urine 1.015 (1.002-1.030); Urine Bilirubin Dipstick Negative (Negative); Urine Urobilinogen Normal (Normal); Urine pH 6.5 (5.0 - 8.0)
[2023-01-30 05:33] LABS: Bacteria 2+ /hpf (None Seen); Color, Urine Yellow (Yellow); Squamous Epithelial Cells - UA 5-10 SEEN /hpf (5-10); Urine Clarity Clear (Clear); White Cell Cast 0-5 SEEN /lpf (None Seen)
[2023-01-30 05:53] LABS: Absolute Lymphocyte Count 3.12 X10^3/uL (0.83-4.51); Absolute Neutrophil Count 6.8 X10^3/uL (2.0-7.7); Basophil# 0.09 X10^3/uL; Basophil% 0.8 % (0-1); Eosinophil# 0.34 X10^3/uL; Hematocrit 40.3 % (37-47); Hemoglobin 13.7 g/dL (12.0-15.0); Lymphocyte # 3.12 X10^3/ul (0.83-4.51); Mean Corpuscular Hgb 28.8 pg (27.0-32.0); Mean Corpuscular Volume 84.7 fL (81-99); Mean Platelet Vol. 10.4 fl (6.2-12.0); Monocyte# 0.81 X10^3/uL; Monocyte% 7.3 % (0-10); NRBC Flagged by Analyzer 0 % (0-5); Neutrophil # 6.75 X10^3/uL (2.7-7.7); Neutrophil % 60.5 % (47-70); Platelet Count 400 K/mm3 (150-450); RBC Distribution Width CV 12.7 % (11.6-14.6); RBC Distribution Width SD 38.4 fl (35.1-43.9); Red Blood Count 4.76 M/mm3 (4.2-5.4); White Blood Count 11.2 K/mm3 (4.4-11.0)
[2023-01-30 06:54] VITALS: RESP 17; TEMP 36.6
--- NOTE | 2023-01-30 07:34 | EX.PCM.CON.S ---
Assessment & Plan Assessment/Plan (1) Acute cholecystitis: PLAN: Patient seems to have mild acute cholecystitis. Her white count was slightly elevated with left shift and her ultrasound showed mildly thickened gallbladder wall at 3.6 mm. The patient has a large gallstone in the fundus. The patient seems to have a early or mild acute cholecystitis. I recommended admission and surgery tomorrow due to her hypokalemia. The patient at this time does not want to have surgery. She says she has a very busy day and wants to go to work later and has [place] with her kids tomorrow and she is supposed to go to [place]. She says her gallbladder has bothered her like this in the past and usually goes away. I continue to recommend cholecystectomy but the patient would like to try antibiotics. I advised her that if anything worsen today or tomorrow she should immediately return to the emergency room for cholecystectomy. I also advised her of the risks of not having surgery such as worsening or becoming an issue when she is down in [place] or more severe cholecystitis. Patient understands the risks and is willing to try this plan. I also strongly advised her to follow-up with me as an outpatient if this does not work for elective cholecystectomy and not waiting for the next cholecystitis event. Jcarlos Flores MD Pager: [facility] [address] [place] [address] [address] [place] [address] Office: HPI Consult Data Date of Consult: 01/30/23 HPI Narrative HPI Narrative: MACKENZIE VASQUEZ, is a 47 F who presents with right upper quadrant and epigastric pain. The patient says that this started at 11 PM last night and woke her from sleep and at 3 AM it was still painful so she came into the emergency room. She denies fevers or chills or nausea or vomiting. She says the pain radiates to the left upper quadrant. [facility] Medical History Acute maxillary sinusitis, unspecified Home Medications norgestimate 0.25 mg-ethinyl estradiol 35 mcg tablet (Sprintec (28)) 1 tab PO DAILY 02/11/18 [History Last Taken Unknown] hydrochlorothiazide 25 mg tablet 25 mg PO DAILY 03/31/22 [History Last Taken Unknown] semaglutide (weight loss) 1.7 mg/0.75 mL subcutaneous pen injector (Wegovy) mg subcut 10/31/22 [History Last Taken Unknown] benzonatate 200 mg capsule 200 mg PO TID PRN cough #20 caps 01/18/23 [Rx Last Taken Unknown] dexamethasone 6 mg tablet 6 mg PO DAILY #5 tabs 01/18/23 [Rx Last Taken Unknown] amoxicillin 875 mg-potassium clavulanate 125 mg tablet 1 tab PO BID #14 tabs 01/30/23 [Rx Last Taken Unknown] ondansetron 4 mg disintegrating tablet 4 mg PO Q8H PRN PRN Nausea #10 tabs 01/30/23 [Rx Last Taken Unknown] tirzepatide (weight loss) 5 mg/0.5 mL subcutaneous pen injector (Zepbound) 5 mg subcut QWEEK 01/30/23 [History Last Taken Unknown] Allergy/AdvReac Type Severity Reaction Status Date / Time No Known Allergies Allergy Verified 01/30/23 03:15 Surgical History History of delivery Social History Smoking Status: Never smoker alcohol intake: never ROS Constitutional Constitutional: Denies anorexia, chills or fatigue Eyes Eyes: Denies change in vision ENT HEENT: Denies abnormal hearing Cardiovascular Cardiovascular: Denies chest pain Respiratory/Chest Respiratory/Chest: Denies cough or dyspnea Gastrointestinal Gastrointestinal: Reports abdominal pain; Denies constipation, nausea or vomiting Genitourinary Genitourinary: Denies change in urinary stream Musculoskeletal Musculoskeletal: Denies abnormal gait Integumentary Integumentary: Denies jaundice Neurologic Neurologic: Denies dizziness Psychiatric Psychiatric: Denies anxiety Endocrine Endocrinology: Denies heat intolerance Hematologic/Lymphatic Hematologic/Lymphatic: Denies easy bleeding Physical Exam Const alert and oriented x3 HEENT normocephalic Eyes PERRL Lymph Lymphatic: no lymphadenopathy noted Resp normal respiratory effort Cardio Rate: regular rate Rhythm: regular rhythm GI soft to palpation Palpation: tender epigastric and RUQ Lab / Micro Data 01/30/23 03:20 01/30/23 03:50 Labs: Laboratory Results - last 24 hr 01/30/23 03:20: WBC 11.2 H, RBC 4.76, Hgb 13.7, Hct 40.3, MCV 84.7, MCH 28.8, MCHC 34.0, RDW Std Deviation 38.4, RDW Coeff of [place] 12.7, Plt Count 400, MPV 10.4, Immature Gran % (Auto) 0.400, Neut % (Auto) 60.5, Lymph % (Auto) 28.0, [place] % (Auto) 7.3, Eos % (Auto) 3.0, Baso % (Auto) 0.8, Absolute Neuts (auto) 6.8, Absolute Lymphs (auto) 3.12, Nucleated RBC % 0 01/30/23 03:50: Sodium 138, Potassium 2.4 L*, Chloride 101, Carbon Dioxide 29.0, Anion Gap 8, BUN 11, Creatinine 1.07 H, Estim Creat Clear Calc 66.98, Est GFR (MDRD) Af Amer 71, Est GFR (MDRD) Non-Af 59 L, BUN/Creatinine Ratio 10.3, Glucose 103, Calcium 9.5, Total Bilirubin 0.40, AST 260 H, ALT 587 H, Alkaline Phosphatase 99, Troponin I High Sens 10, Total Protein 7.6, Albumin 3.4, Globulin 4.2, Albumin/Globulin Ratio 0.8 L, Lipase 61, Serum , Qual NEGATIVE 01/30/23 05:09: Urine Color Yellow, Urine Clarity Clear, Urine pH 6.5, Ur Specific [place] 1.015, Urine Protein 30 H, Urine Glucose (UA) Normal, Urine Ketones Negative, Urine Occult Blood Negative, Urine Nitrite Negative, Urine Bilirubin Negative, Urine Urobilinogen Normal, Ur Leukocyte Esterase 25 H, Urine RBC 0 SEEN, Urine WBC 0 SEEN, Ur Squamous Epith Cells 5-10 SEEN, Urine Bacteria 2+, WBC Casts 0-5 SEEN, Urine Mucus 0 SEEN Imagaing Radiology Impression Abdomen/Pelvis CT 01/30/23 03:33 IMPRESSION: 1. Cholelithiasis with distended gallbladder 2. Hepatomegaly and hepatic steatosis 3. Uterine fibroids Electronically Signed: Benoit Coughlin MD at 5:46 EST , Gallbladder Ultrasound 01/30/23 03:33 IMPRESSION: 1. Cholelithiasis with secondary signs of acute cholecystitis 2. Hepatic steatosis and hepatomegaly Electronically Signed: Benoit Coughlin MD at 5:42 EST , Chest X-Ray 01/30/23 04:45 IMPRESSION: No radiographic evidence of acute cardiopulmonary disease. Electronically Signed: Benoit Coughlin MD at 5:43 EST ,
== END 2023-01-30 06:55 | disposition home or self-care (01) ==
PROVIDERS: Emergency Provider Emergency Medicine; PCP Family Medicine; Visit Provider Emergency Medicine
DX: K80.00 Calculus of gallbladder with acute cholecystitis without obstruction (principal); E87.6 Hypokalemia; I10 Essential (primary) hypertension; Z79.899 Other long term (current) drug therapy
CPT/HCPCS: 71045; 74177; 76705; 80053; 81001; 83690; 84484; 84703; 85025; 93005; 96360; 96361; 96374; 96375; 99283; J7030; Q9967; A4216; J2405

== ENCOUNTER 2023-04-29 17:45 | Emergency (ER) | payer OTHER, MEDICAID, SELFPAY ==
[2023-04-29 17:46] VITALS: BP 131/99; PULSE 89; RESP 18; TEMP 36.2; O2SAT 100; BMI 33.3
[2023-04-29 18:00] VITALS: BP 131/99; PULSE 89; RESP 18; TEMP 36.2; O2SAT 100
--- NOTE | 2023-04-29 18:40 | EX.ED.DYSGE1 ---
HPI History of Present Illness Chief Complaint: Abd Pain PFSH PFS Medical History Acute maxillary sinusitis, unspecified Home Medications norgestimate 0.25 mg-ethinyl estradiol 35 mcg tablet (Sprintec (28)) 1 tab PO DAILY 02/11/18 [History Last Taken Unknown] hydrochlorothiazide 25 mg tablet 25 mg PO DAILY 03/31/22 [History Last Taken Unknown] semaglutide (weight loss) 1.7 mg/0.75 mL subcutaneous pen injector (Wegovy) mg subcut 10/31/22 [History Last Taken Unknown] benzonatate 200 mg capsule 200 mg PO TID PRN cough #20 caps 01/18/23 [Rx Last Taken Unknown] dexamethasone 6 mg tablet 6 mg PO DAILY #5 tabs 01/18/23 [Rx Last Taken Unknown] amoxicillin 875 mg-potassium clavulanate 125 mg tablet 1 tab PO BID #14 tabs 01/30/23 [Rx Last Taken Unknown] ondansetron 4 mg disintegrating tablet 4 mg PO Q8H PRN PRN Nausea #10 tabs 01/30/23 [Rx Last Taken Unknown] tirzepatide (weight loss) 5 mg/0.5 mL subcutaneous pen injector (Zepbound) 5 mg subcut QWEEK 01/30/23 [History Last Taken Unknown] Allergy/AdvReac Type Severity Reaction Status Date / Time No Known Allergies Allergy Verified 04/29/23 17:45 Surgical History History of delivery Social History Smoking Status: Never smoker alcohol intake: never EXAM Physical Exam Const Vital Signs: 04/29/23 17:46 04/29/23 18:00 04/29/23 20:00 Temperature 97.2 F L 97.2 F L Temperature Source Temporal Temporal Pulse Rate 89 89 64 Respiratory Rate 18 18 20 H Blood Pressure 131/99 H 131/99 H 134/81 H Blood Pressure Mean 109 109 98 Pulse Ox 100 100 99 Oxygen Delivery Method Room Air Room Air Room Air MDM MDM MDM Narrative Medical decision making narrative: HISTORY OF PRESENT ILLNESS: 47-year-old female presents with right upper quadrant pain. States she is having a gallbladder attack . States he ate potato chips earlier today. After 1 hour patient noted right upper quadrant pain. She states its her typical pain when her gallbladder flares up. She denies any vomiting but notes nausea. Last bowel was yesterday. Denies any urinary complaints. Denies any vaginal bleeding or discharge. States she was supposed to get her gallbladder out at the end of last year however scheduling issues made this impossible. REVIEW OF SYSTEMS: Pertinent positives: Right upper quadrant abdominal pain, nausea Pertinent negatives: Vomiting, constipation, diarrhea, fever, chest pain. PHYSICAL EXAM: Nursing triage notes reviewed, Vital signs reviewed Constitutional: please see mdm HENT: MMM Eyes: Pupils equal round and reactive to light, Extraocular muscles intact Neck: No stridor, no JVD, full neck ROM Lungs: Clear to auscultation, No wheezing or rales. No increased work of breathing, no conversational dyspnea, no accessory muscle use, no nasal flaring. No respiratory distress noted Heart: Regular rate and rhythm, No murmurs, No rubs and No gallops, 2+ distal pulses (radial, femoral, posterior tibial) in all extremities Abdomen: Soft, right upper quadrant TTP, negative Kern sign, no rigidity, rebound or guarding, no obvious peritoneal signs, no palpable pulsatile abdominal masses, no auscultated abdominal bruit : No CVAT Extremities: No edema Neuro: No focal neurological deficits, cranial nerves II through XII intact, 5/5 strength in all extremities. Intact sensation to light touch in all extremities, 2+ reflexes bilateral patella tendons. Normal gait. No ataxia. Skin: No rash or lesions noted MEDICAL DECISION MAKING: Chief Complaint: Abdominal pain External records reviewed: Gallbladder ultrasound from January 2023 shows cholelithiasis, secondary signs of acute cholecystitis, [place] steatosis Factors affecting care: Cholelithiasis, type 2 diabetes Consults: General surgery [facility] Narrative: Patient was hemodynamically stable, afebrile and nontoxic-appearing. No peritoneal signs. Exam with right upper quadrant TTP, positive Kern sign. I considered the following differential diagnosis: Acute cholecystitis, hepatobiliary obstruction, pancreatitis, perforation, obstruction I obtained a broad lab and imaging workup to further elucidate etiology patient complaints. I treat the patient with symptomatic treatments including IV fluids, Toradol and Zofran ALL IMAGES (IF OBTAINED) HAVE BEEN PERSONALLY REVIEWED AND INTERPRETED BY MYSELF. CBC without leukocytosis, severe anemia, no thrombocytopenia. BMP with hypokalemia, there is no anion gap to suggest endorgan perfusion, no metabolic acidosis, baseline kidney dysfunction LFTs with elevations in AST and ALT however these are downtrending from prior, no evidence of hyperbilirubinemia or elevated lipase to suggest pancreas or biliary obstruction RUQ US shows gallstones possible acute on chronic cholecystitis but no acute cholecystitis I discussed the case with the surgeon on-call Dr. Fuller who recommended against acute surgery. She stated the patient's pain was under control she can go home and follow-up with her surgeon. Patient was reassessed. Repeat abdominal exam remained without peritoneal signs. Patient stated the pain was much better if she is appropriate discharge home. Strict return precautions were discussed. The patient and/or family, caregivers express understanding. The patient and/or family, caregivers agrees with the plan. Shared decision making: I will have a discussion with the patient and or visitors regarding risk/benefits of further testing or admission. They will be made aware of of the risk/benefits inherent in this decision they will be given the opportunity to voice understanding. Total critical care time today provided was at least 0 minutes. This excludes separately billable procedures. Critical care time (if documented) is secondary to the patient having high probability of clinically significant/life threatening deterioration in the patient's condition which required my urgent intervention. Impression: 1. Upper quadrant abdominal pain 2. History of gallstones 3. Elevated liver enzymes Dispo: Discharge home This note was generated with [employer] dictation software. It may contain incorrect words, spelling, and punctuation that were not noted in review of the chart prior to signing. Lab Data Labs: Laboratory Results - last 24 hr 04/29/23 04/29/23 18:55 20:16 WBC 8.8 RBC 4.61 Hgb 13.7 Hct 39.4 MCV 85.5 MCH 29.7 MCHC 34.8 RDW Std Deviation 39.0 RDW Coeff of Byron 12.7 Plt Count 388 MPV 10.0 Immature Gran % (Auto) 0.300 Neut % (Auto) 53.0 Lymph % (Auto) 32.7 Rice % (Auto) 6.3 Eos % (Auto) 6.8 H Baso % (Auto) 0.9 Absolute Neuts (auto) 4.7 Absolute Lymphs (auto) 2.88 Nucleated RBC % 0 Sodium 139 Potassium 2.5 L* Chloride 102 Carbon Dioxide 28.0 Anion Gap 9 BUN 13 Creatinine 1.21 H Estim Creat Clear Calc 72.58 Est GFR (MDRD) Af Amer 62 Est GFR (MDRD) Non-Af 51 L BUN/Creatinine Ratio 10.7 Glucose 87 Calcium 9.7 Total Bilirubin 0.50 Direct Bilirubin 0.16 AST 90 H ALT 164 H Alkaline Phosphatase 81 Total Protein 7.8 Albumin 3.7 Globulin 4.1 Lipase 40 Urine Color Yellow Urine Clarity Sl. Cloudy Urine pH 6.5 Ur Specific [place] 1.015 Urine Protein 30 H Urine Glucose (UA) Normal Urine Ketones 15 H Urine Occult Blood 10 H Urine Nitrite Negative Urine Bilirubin 1 H Urine Urobilinogen 1 H Ur Leukocyte Esterase 25 H Urine RBC 0-5 SEEN Urine WBC 0-5 SEEN Ur Squamous Epith Cells 10-25 SEEN Urine Bacteria 3+ Urine Mucus 0 SEEN Urine Test Negative Radiography Diagnostic Testing: Clinical Impression(s) from Imaging Studies Gallbladder Ultrasound 04/29/23 19:22 IMPRESSION: 1. Possible acute or chronic cholecystitis with cholelithiasis, gallbladder sludge, positive sonographic Kern''s sign. Clinical correlation is recommended. 2. Fatty infiltration of liver with some focal sparing. Electronically Signed: Roe Perez MD at 20:25 EDT Reading Location ID and State: [id number] / [employer] , Service support , ADDENDUM: 04/29/232036 IMPRESSION: 1. Possible acute or chronic cholecystitis with cholelithiasis, gallbladder sludge, positive sonographic Kern''s sign. Clinical correlation is recommended. 2. Fatty infiltration of liver with some focal sparing. N.B. : The above Results were Read Back by Roe Perez MD to Chintan Bautista DO, and understanding confirmed on 04/29/2023 20:30:08 (ET). Electronically Signed: Roe Perez MD at 20:25 EDT Reading Location ID and State: [id number] / [employer] , Service support , Discharge Plan Triage Chief Complaint: Abd Pain ED Provider: Chintan Bautista Dx/Rx/DC Orders Prescriptions: No Action norgestimate-ethinyl estradiol [Sprintec (28)] 0.25-35 mg-mcg tablet 1 tab PO DAILY Wegovy 1.7 mg/0.75 mL pen injector subcut Patient Comments: inject 0.75 milliliters subcutaneously every week dexamethasone 6 mg tablet 6 mg PO DAILY Qty: 5 0RF benzonatate 200 mg capsule 200 mg PO TID PRN (Reason: cough) Qty: 20 0RF hydrochlorothiazide 25 mg tablet 25 mg PO DAILY Patient Comments: TAKE 1 TABLET BY MOUTH ONCE DAILY Zepbound 5 mg/0.5 mL pen injector 5 mg SUBCUT QWEEK Patient Comments: inject 0.5 milliliter subcutaneously every week amoxicillin-pot clavulanate 875-125 mg tablet 1 tab PO BID Qty: 14 0RF ondansetron 4 mg tablet,disintegrating 4 mg PO Q8H PRN PRN (Reason: Nausea) Qty: 10 0RF Primary Care Provider: Hiram Moreland Referrals: Hiram Moreland MD [Primary Care Provider] -
[2023-04-29] MEDS: 0.9% Normal Saline (1000mL) 1,000 ML 1000 ML IV (19:02)
[2023-04-29] MEDS: Morphine 4 MG/ML Syringe IV (19:02)
[2023-04-29] MEDS: Ondansetron 4 MG/2 ML Vial IV (19:02)
[2023-04-29 19:09] LABS: Absolute Lymphocyte Count 2.88 X10^3/uL (0.83-4.51); Absolute Neutrophil Count 4.7 X10^3/uL (2.0-7.7); Basophil# 0.08 X10^3/uL; Basophil% 0.9 % (0-1); Eosinophils% 6.8 % (0-5); Hematocrit 39.4 % (37-47); Hemoglobin 13.7 g/dL (12.0-15.0); Lymphocyte # 2.88 X10^3/ul (0.83-4.51); Lymphocyte % 32.7 % (19-41); Mean Corp Hgb Conc 34.8 g/dL (32-36); Mean Corpuscular Hgb 29.7 pg (27.0-32.0); Mean Corpuscular Volume 85.5 fL (81-99); Monocyte# 0.55 X10^3/uL; Monocyte% 6.3 % (0-10); NRBC Flagged by Analyzer 0 % (0-5); Neutrophil # 4.66 X10^3/uL (2.7-7.7); Platelet Count 388 K/mm3 (150-450); RBC Distribution Width CV 12.7 % (11.6-14.6); Red Blood Count 4.61 M/mm3 (4.2-5.4); White Blood Count 8.8 K/mm3 (4.4-11.0)
--- NOTE | 2023-04-29 19:22 | US_ITS ---
We are attempting to reach an attending provider to discuss findings. An addendum with communication details will be sent when the communication is complete. STUDY: ABDOMINAL ULTRASOUND - RIGHT UPPER QUADRANT REASON FOR VISIT: Female, 47 years old RUQ TTP TECHNIQUE: Ultrasound evaluation of the right upper quadrant was performed with real-time and static morin-scale imaging. TECHNICAL QUALITY: Adequate. COMPARISON: None. FINDINGS: Liver: The liver measures 21.3 cm. There is increased echogenicity consistent with fatty infiltration. The bile ducts are within normal limits. There is hepatic color flow. The direction of portal flow is hepatopetal. Ill-defined hypoechoic areas within the subcapsular right lobe of the liver likely consistent with focal sparing. Gallbladder: Normal distended gallbladder. The gallbladder wall measures 2 mm. There is a positive sonographic Kern''s sign. There is no pericholecystic fluid. There is a solitary echogenic gallstone within the gallbladder. Sludge within the gallbladder. Common Bile Duct (C.B.D.): The common bile duct measures 5 mm. Pancreas: Normal size of the head, body and tail of the pancreas. There is normal echogenicity of the pancreas. There is no demonstrated pancreatic mass or cyst. Right Kidney: Normal size of the right kidney. The right kidney measures 10.7 cm. Normal renal cortex. The right cortex measures 1.0 cm. There is no demonstrated renal mass or cyst. There is no right hydronephrosis. US/Gallbladder IMPRESSION: 1. Possible acute or chronic cholecystitis with cholelithiasis, gallbladder sludge, positive sonographic Kern''s sign. Clinical correlation is recommended. 2. Fatty infiltration of liver with some focal sparing. Electronically Signed: Roe Perez MD at 20:25 EDT ,
[2023-04-29 19:43] LABS: AST(SGOT) 90 U/L (15-37); Alanine Aminotransfer ALT/SGPT 164 U/L (13-56); Albumin, Serum 3.7 g/dL (3.2-5.0); Alkaline Phosphatase 81 U/L (45-117); Anion Gap 9 (5-15); BUN 13 mg/dL (7-18); BUN/Creat Ratio 10.7 RATIO (10-20); Bilirubin, Direct 0.16 mg/dL (0.00-0.30); Calcium,Total 9.7 mg/dL (8.5-10.1); Chloride 102 mmol/L (98-107); Creatinine, Serum 1.21 mg/dL (0.55-1.02); EST Glomerular Filtration Rate 51 mL/min (>60); Est Glom Filt Rate - Afr Amer 62 mL/min (>60); Estimated Creatinine Clearance 72.58 ml/min; Globulin 4.1 g/dL (2.2-4.2); Glucose 87 mg/dL (74-106); Lipase 40 U/L (13-75); Potassium 2.5 mmol/L (3.5-5.1); Protein, Total 7.8 g/dL (6.4-8.2); Sodium Level 139 mmol/L (136-145)
[2023-04-29 20:00] VITALS: BP 134/81; PULSE 64; RESP 20; O2SAT 99
[2023-04-29 20:25] LABS: Mucous, Urine 0 SEEN /hpf (<or=2+)
[2023-04-29 20:29] LABS: Color, Urine Yellow (Yellow); Glucose, Dipstick Normal (Normal); Ketone-Dipstick 15 mg/dl (Negative); Leukocyte Esterase-Dipstick 25 /ul (Negative); Nitrite-Dipstick Negative (Negative); Occult Blood-Urine 10 /ul (Negative); Protein-Dipstick 30 mg/dl (Negative); Specific Gravity, Urine 1.015 (1.002-1.030); Urine Clarity Sl. Cloudy (Clear); Urine Urobilinogen 1 mg/dl (Normal); Urine pH 6.5 (5.0 - 8.0)
[2023-04-29 20:30] LABS: Urine Bilirubin Dipstick 1 mg/dL (Negative)
[2023-04-29 20:36] LABS: Bacteria 3+ /hpf (None Seen)
[2023-04-29 20:37] LABS: Internal QC Validated? YES +Cl - CLEAR BKGD; Pregnancy, Urine Negative Negative; Red Blood Cells-Urine 0-5 SEEN /hpf (0-5); Squamous Epithelial Cells - UA 10-25 SEEN /hpf (5-10); White Blood Cells 0-5 SEEN /hpf (0-5)
[2023-04-29] MEDS: Potassium Chloride Oral Tablet 20 MEQ 60 MEQ PO (20:51)
[2023-04-29 20:54] VITALS: BP 134/81; PULSE 75
[2023-04-29 21:43] VITALS: BP 134/81; PULSE 75; RESP 18; TEMP 36.2; O2SAT 99
== END 2023-04-29 21:55 | disposition home or self-care (01) ==
PROVIDERS: Emergency Provider Emergency Medicine; PCP Family Medicine; Visit Provider Emergency Medicine
DX: R10.11 Right upper quadrant pain (principal); E11.9 Type 2 diabetes mellitus without complications; R74.8 Abnormal levels of other serum enzymes; E87.6 Hypokalemia; Z79.85 Long-term (current) use of injectable non-insulin antidiabetic drugs; Z87.19 Personal history of other diseases of the digestive system
CPT/HCPCS: 76705; 80048; 80076; 81001; 81025; 83690; 85025; 96361; 96374; 96375; 99284; J7030; J2405

== ENCOUNTER 2023-09-23 05:26 | Emergency (ER) | payer MEDICAID, SELFPAY ==
[2023-09-23 05:27] VITALS: BP 136/71; PULSE 68; RESP 20; TEMP 36.4; O2SAT 100; BMI 29.6
--- NOTE | 2023-09-23 05:36 | ED.VIS.GI ---
HPI HPI - GI History of Present Illness Chief Complaint: Abd Pain Informant: patient Abdominal Pain/Flank Pain Onset: Yesterday Context: Gradual Onset Timing: Continuous Quality: Burning Location: Epigastric Worsened by: Nothing Relieved by: Nothing Nausea/Vomiting/Emesis GI Symptom: Negative for Nausea or Vomiting Diarrhea/Melena/Hematochezia GI Symptom: Negative for Diarrhea, Melena or Hematochezia Associated Symptoms Associated Symptoms: Negative for Dysuria, Frequency or Hematuria LMP: Approximately 2 months ago Narrative Narrative: Patient presents with abdominal pain that began yesterday. Patient states it became worse today. Patient states her pain is mainly over the epigastric area and radiates into her back. Patient describes it as a burning. Patient states that has been constant. Patient states nothing makes it better and nothing makes it worse. Patient states she has been on Mounjaro for the past year. Patient denies any nausea or vomiting. Patient denies any diarrhea, melena, or hematochezia. Patient denies any dysuria, frequency, or hematuria. Patient denies any abnormal vaginal bleeding or discharge. [facility] Medical History Gallstones Acute maxillary sinusitis, unspecified Home Medications ?Medication ?Instructions ?Recorded ?Last Taken ?Type norgestimate 0.25 mg-ethinyl 1 tab PO DAILY 02/11/18 Unknown History estradiol 35 mcg tablet (Sprintec (28)) hydrochlorothiazide 25 mg tablet 25 mg PO DAILY 03/31/22 Unknown History semaglutide (weight loss) 1.7 mg subcut 10/31/22 Unknown History mg/0.75 mL subcutaneous pen injector (Isabel) benzonatate 200 mg capsule 200 mg PO TID PRN cough #20 caps 01/18/23 Unknown Rx dexamethasone 6 mg tablet 6 mg PO DAILY #5 tabs 01/18/23 Unknown Rx amoxicillin 875 mg-potassium 1 tab PO BID #14 tabs 01/30/23 Unknown Rx clavulanate 125 mg tablet ondansetron 4 mg disintegrating 4 mg PO Q8H PRN PRN Nausea #10 tabs 01/30/23 Unknown Rx tablet tirzepatide (weight loss) 5 mg/0.5 5 mg subcut QWEEK 01/30/23 Unknown History mL subcutaneous pen injector (Zepbound) ondansetron 4 mg disintegrating 4 mg PO Q8H PRN PRN Nausea #10 tabs 04/29/23 Unknown Rx tablet ondansetron 4 mg disintegrating 4 mg PO Q8H PRN PRN Nausea #10 tabs 04/29/23 Unknown Rx tablet oxycodone-acetaminophen 5 mg-325 1 tab PO Q8H PRN pain 3 days #10 04/29/23 Unknown Rx mg tablet (Percocet) tabs ciprofloxacin HCl 500 mg tablet 500 mg PO BID #14 TABLETS 09/23/23 Unknown Rx metronidazole 500 mg tablet 500 mg PO Q8H #21 tabs 09/23/23 Unknown Rx ondansetron 4 mg disintegrating 4 mg PO Q8H PRN PRN Nausea #10 tabs 09/23/23 Unknown Rx tablet Allergy/AdvReac Type Severity Reaction Status Date / Time No Known Allergies Allergy Verified 09/23/23 05:27 Surgical History History of delivery Social History Smoking Status: Never smoker alcohol intake: never ROS ROS ED Constitutional Constitutional ED: Denies chills or fever(s) Eyes Eyes: Denies blurry vision or change in vision ENT ENT ED: Denies rhinorrhea or sore throat Cardiovascular Cardiovascular: Reports palpitations; Denies chest pain Respiratory/Chest Respiratory/Chest: Denies cough or dyspnea Gastrointestinal Gastrointestinal: Reports abdominal pain; Denies nausea or vomiting Genitourinary Genitourinary ED: Denies dysuria or hematuria Musculoskeletal Musculoskeletal: Reports back pain; Denies neck pain Integumentary Denies abscess or rash Neurologic Neurologic: Denies headache(s) or weakness Allergic/Immunologic Allergic/Immunologic ED: Denies mouth swelling or urticaria EXAM Physical Exam Const Vital Signs: 09/23/23 05:27 09/23/23 07:27 Temperature 97.6 F L Temperature Source Oral Pulse Rate 68 65 Respiratory Rate 20 H 19 H Blood Pressure 136/71 H 120/75 Blood Pressure Mean 92 90 Pulse Ox 100 93 Oxygen Delivery Method Room Air Room Air Positive well nourished and well developed General Appearance ED: well developed and NAD HEENT Reports moist mucous membranes Neck supple and no JVD Resp normal respiratory effort and clear to auscultation bilaterally Cardio regular rate and regular rhythm GI non-distended Palpation: soft and tender epigastric, LUQ and RUQ; Negative for guarding or rebound tenderness present Neuro CN's II-XII intact bilaterally, moves all extremities and no sensory deficits noted Sensorium / Orientation: alert Motor Exam: strength 5/5 throughout Psych mental status grossly normal MDM MDM MDM Narrative Medical decision making narrative: Differential diagnosis includes pancreatitis, cholecystitis, cholelithiasis, peptic ulcer disease, duodenal ulcer, pyelonephritis, bowel obstruction, perforation, and colitis. CBC will be obtained to assess for leukocytosis and anemia. Comprehensive metabolic profile will be obtained to assess for hepatic function, renal function, and electrolyte abnormality. Lipase will be obtained to assess for pancreatitis. Urinalysis will be obtained to assess for urinary tract infection and hematuria. CT scan of the abdomen pelvis will be obtained to assess for cholecystitis, cholelithiasis, and pancreatitis. Lab Data Attestation: I reviewed the patient's lab results. Lab results narrative: CBC was reviewed and was within normal limits. Comprehensive metabolic profile was reviewed. Potassium is low at 2.6. Creatinine was slightly elevated at 1.17. This is consistent with previous results. Lipase was reviewed and was normal at 40. Serum hCG was reviewed and was negative. Urinalysis was reviewed. Urine ketones were 150. Leukocyte esterase was 100. There are 10-25 squamous epithelial cells, 5-10 transitional epithelial cells and 0-5 renal epithelial cells. Labs: Laboratory Results - last 24 hr 09/23/23 09/23/23 05:38 06:13 WBC 8.1 RBC 4.48 Hgb 13.0 Hct 38.2 MCV 85.3 MCH 29.0 MCHC 34.0 RDW Std Deviation 38.0 RDW Coeff of [place] 12.3 Plt Count 353 MPV 10.3 Immature Gran % (Auto) 0.200 Neut % (Auto) 64.0 Lymph % (Auto) 27.5 [place] % (Auto) 5.3 Eos % (Auto) 2.1 Baso % (Auto) 0.9 Absolute Neuts (auto) 5.2 Absolute Lymphs (auto) 2.21 Nucleated RBC % 0 Sodium 135 L Potassium 2.6 L* Chloride 99 Carbon Dioxide 28.0 Anion Gap 8 BUN 9 Creatinine 1.17 H Estim Creat Clear Calc 69.94 Est GFR (MDRD) Af Amer 64 Est GFR (MDRD) Non-Af 53 L BUN/Creatinine Ratio 7.7 L Glucose 86 Calcium 9.7 Total Bilirubin 0.60 AST 34 ALT 50 Alkaline Phosphatase 77 Total Protein 7.1 Albumin 3.2 Globulin 3.9 Albumin/Globulin Ratio 0.8 L Lipase 40 Serum , Qual NEGATIVE Urine Color Yellow Urine Clarity Sl. Cloudy Urine pH 7.0 Ur Specific [place] 1.015 Urine Protein 30 H Urine Glucose (UA) Normal Urine Ketones 150 A* Urine Occult Blood Negative Urine Nitrite Negative Urine Bilirubin Negative Urine Urobilinogen 1 H Ur Leukocyte Esterase 100 H Urine RBC 0-5 SEEN Urine WBC 0 SEEN Ur Squamous Epith Cells 10-25 SEEN Ur Transition Epith Cell 5-10 SEEN Ur Renal Epithelial Cell 0-5 SEEN Amorphous Sediment 1+ Urine Bacteria RARE Hyaline Casts 0-5 SEEN Urine Mucus 0 SEEN Radiography Diagnostic Testing: Clinical Impression(s) from Imaging Studies Abdomen/Pelvis CT 09/23/23 05:58 IMPRESSION: 1. Findings suggest sequela of previous or chronic infectious or inflammatory colitis. 2. Cholelithiasis with very distended gallbladder. Electronically Signed: Cristina Toth MD at 7:30 EDT Reading Location ID and State: [address] [place] [address] , Service support , CT scan of the abdomen and pelvis was obtained. There is infectious or inflammatory colitis. There is cholelithiasis with a distended gallbladder. There is no free air or free fluid. This was interpreted by the radiologist and was also independently reviewed by myself. Treatment and Re-Evaluation :: Patient was given IV fluids, morphine, and Zofran. Patient was given a dose of oral potassium and IV potassium. Patient is feeling better on reevaluation. Patient was advised of her findings. Patient was given a dose of Cipro and Flagyl. Patient was given prescriptions for Cipro, Flagyl, and Zofran. Patient was instructed to avoid alcohol while taking antibiotics. Patient was instructed to follow-up with her primary care physician in 5 to 7 days. Patient understood and was agreeable with the plan. All questions were answered. Discharge Plan Triage Chief Complaint: Abd Pain ED Provider: Abhilash Martinez Dx/Rx/DC Orders Clinical Impression: Colitis, Gallstones, Epigastric abdominal pain Instructions: ED Understanding Colitis Prescriptions: New metronidazole 500 mg tablet 500 mg PO Q8H Qty: 21 0RF ciprofloxacin HCl 500 mg tablet 500 mg PO BID Qty: 14 0RF ondansetron 4 mg tablet,disintegrating 4 mg PO Q8H PRN PRN (Reason: Nausea) Qty: 10 0RF No Action norgestimate-ethinyl estradiol [Sprintec (28)] 0.25-35 mg-mcg tablet 1 tab PO DAILY Wegovy 1.7 mg/0.75 mL pen injector subcut Patient Comments: inject 0.75 milliliters subcutaneously every week dexamethasone 6 mg tablet 6 mg PO DAILY Qty: 5 0RF benzonatate 200 mg capsule 200 mg PO TID PRN (Reason: cough) Qty: 20 0RF hydrochlorothiazide 25 mg tablet 25 mg PO DAILY Patient Comments: TAKE 1 TABLET BY MOUTH ONCE DAILY Zepbound 5 mg/0.5 mL pen injector 5 mg SUBCUT QWEEK Patient Comments: inject 0.5 milliliter subcutaneously every week amoxicillin-pot clavulanate 875-125 mg tablet 1 tab PO BID Qty: 14 0RF ondansetron 4 mg tablet,disintegrating 4 mg PO Q8H PRN PRN (Reason: Nausea) Qty: 10 0RF ondansetron 4 mg tablet,disintegrating 4 mg PO Q8H PRN PRN (Reason: Nausea) Qty: 10 0RF oxycodone-acetaminophen [Percocet] 5-325 mg tablet 1 tab PO Q8H PRN (Reason: pain) 3 Days Qty: 10 0RF ondansetron 4 mg tablet,disintegrating 4 mg PO Q8H PRN PRN (Reason: Nausea) Qty: 10 0RF Primary Care Provider: Hiram Moreland Referrals: Hiram Moreland MD [Primary Care Provider] - 5-7 Days Print Language: Wallisian Disposition Disposition: Home, Self Care
--- NOTE | 2023-09-23 05:58 | CT_ITS ---
STUDY: CT ABDOMEN AND PELVIS WITH CONTRAST REASON FOR EXAM: Female, 48 years old patient with abdominal pain. RADIATION DOSAGE (If Supplied By Facility): CTDIvol = ( 13.87 ) mGy, DLP = ( 962.43 ) mGycm TECHNIQUE: Transaxial images were obtained from the dome of the diaphragm to the symphysis pubis without oral contrast. 100 mL of Isovue-300 was administered. Sagittal and coronal images were reconstructed. Individualized dose optimization techniques were used for this CT. COMPARISON: CT of abdomen and pelvis dated January 30, 2023. FINDINGS: The visualized lung bases are unremarkable. The visualized portions of the heart are within normal limits. There is elongation of the right lobe of the liver consistent with a Rea''s lobe. There is a solitary gallstone. Gallbladder is very distended. Normal spleen. Normal pancreas. Normal bilateral adrenal glands. Normal right kidney. Normal left kidney. Normal visualized stomach. There is no obvious dilated bowel, ascites or pneumoperitoneum. Small bowel has a grossly normal appearance. The descending colon is nondistended with questionable thickening of the devine. There is also some thickening of the wall of the transverse colon which is nondistended. The ascending colon is distended with stool. There is non-visualization of the appendix. Normal abdominal aorta. Normal inferior vena cava. Normal retroperitoneum. Normal urinary bladder. Normal visualized uterus. Normal abdominal wall. Normal osseous structures. CT/Abdomen/Pelvis W IV Cont ONLY IMPRESSION: 1. Findings suggest sequela of previous or chronic infectious or inflammatory colitis. 2. Cholelithiasis with very distended gallbladder. Electronically Signed: Cristina Toth MD at 7:30 EDT ,
[2023-09-23 06:08] LABS: Absolute Lymphocyte Count 2.21 X10^3/uL (0.83-4.51); Absolute Neutrophil Count 5.2 X10^3/uL (2.0-7.7); Basophil# 0.07 X10^3/uL; Basophil% 0.9 % (0-1); Eosinophil# 0.17 X10^3/uL; Eosinophils% 2.1 % (0-5); Hematocrit 38.2 % (37-47); Lymphocyte # 2.21 X10^3/ul (0.83-4.51); Lymphocyte % 27.5 % (19-41); Mean Corpuscular Volume 85.3 fL (81-99); Mean Platelet Vol. 10.3 fl (6.2-12.0); Monocyte# 0.43 X10^3/uL; Monocyte% 5.3 % (0-10); NRBC Flagged by Analyzer 0 % (0-5); Neutrophil # 5.15 X10^3/uL (2.7-7.7); Platelet Count 353 K/mm3 (150-450); RBC Distribution Width CV 12.3 % (11.6-14.6); Red Blood Count 4.48 M/mm3 (4.2-5.4); White Blood Count 8.1 K/mm3 (4.4-11.0)
[2023-09-23] MEDS: 0.9% Normal Saline (1000mL) 1,000 ML 999 ML IV (06:08)
[2023-09-23] MEDS: Morphine 4 MG/ML Syringe IV (06:08)
[2023-09-23] MEDS: Ondansetron 4 MG/2 ML Vial IV (06:08)
[2023-09-23 06:16] LABS: Mucous, Urine 0 SEEN /hpf (<or=2+); White Blood Cells 0 SEEN /hpf (0-5)
[2023-09-23 06:19] LABS: Color, Urine Yellow (Yellow); Glucose, Dipstick Normal (Normal); Leukocyte Esterase-Dipstick 100 /ul (Negative); Nitrite-Dipstick Negative (Negative); Occult Blood-Urine Negative /ul (Negative); Protein-Dipstick 30 mg/dl (Negative); Specific Gravity, Urine 1.015 (1.002-1.030); Urine Bilirubin Dipstick Negative (Negative); Urine Clarity Sl. Cloudy (Clear); Urine Urobilinogen 1 mg/dl (Normal)
[2023-09-23 06:38] LABS: Amorphous Sediment 1+; Bacteria RARE /hpf (None Seen); Hyaline Cast 0-5 SEEN /lpf (0-5); Ketone-Dipstick 150 mg/dl (Negative); Red Blood Cells-Urine 0-5 SEEN /hpf (0-5); Renal Epithelial Cells 0-5 SEEN /hpf (0-5); Squamous Epithelial Cells - UA 10-25 SEEN /hpf (5-10); Transitional Epithelial - Ur 5-10 SEEN /hpf (0-5)
[2023-09-23 06:39] LABS: ALB/GLOB Ratio 0.8 RATIO (0.9-2.4); AST(SGOT) 34 U/L (15-37); Alanine Aminotransfer ALT/SGPT 50 U/L (13-56); Albumin, Serum 3.2 g/dL (3.2-5.0); Alkaline Phosphatase 77 U/L (45-117); Anion Gap 8 (5-15); BUN 9 mg/dL (7-18); BUN/Creat Ratio 7.7 RATIO (10-20); Calcium,Total 9.7 mg/dL (8.5-10.1); Chloride 99 mmol/L (98-107); Creatinine, Serum 1.17 mg/dL (0.55-1.02); EST Glomerular Filtration Rate 53 mL/min (>60); Est Glom Filt Rate - Afr Amer 64 mL/min (>60); Estimated Creatinine Clearance 69.94 ml/min; Globulin 3.9 g/dL (2.2-4.2); Glucose 86 mg/dL (74-106); Lipase 40 U/L (13-75); Potassium 2.6 mmol/L (3.5-5.1); Protein, Total 7.1 g/dL (6.4-8.2); Sodium Level 135 mmol/L (136-145)
[2023-09-23] MEDS: Potassium Chloride Oral Tablet 20 MEQ 40 MEQ PO (06:48)
[2023-09-23 06:53] LABS: Internal QC Validated? YES +Cl - CLEAR BKGD; Pregnancy, Serum, hCG Quali. NEGATIVE Negative
[2023-09-23] MEDS: Potassium Chloride 10mEq/100mL 10 MEQ/100 ML IV.SOLN. 100 MEQ IV BOLUS (07:22)
[2023-09-23 07:27] VITALS: BP 120/75; PULSE 65; RESP 19; O2SAT 93
[2023-09-23] MEDS: metroNIDAZOLE 500 MG Tablet PO (08:14)
[2023-09-23] MEDS: Ciprofloxacin 500 MG Tablet PO (08:14)
[2023-09-23 08:16] VITALS: BP 118/71; PULSE 78; RESP 16; TEMP 36.7; O2SAT 99
== END 2023-09-23 08:20 | disposition home or self-care (01) ==
PROVIDERS: Emergency Provider Emergency Medicine; PCP Family Medicine; Visit Provider Emergency Medicine
DX: K52.9 Noninfective gastroenteritis and colitis, unspecified (principal); K80.20 Calculus of gallbladder without cholecystitis without obstruction
CPT/HCPCS: 74177; 80053; 81001; 83690; 84703; 85025; 96361; 96365; 96375; 99283; J7040; J7050; Q9967; A4216; J2405

== ENCOUNTER 2025-01-22 10:16 | Emergency (ER) | payer OTHER, MEDICAID, SELFPAY ==
[2025-01-22 10:16] VITALS: BP 133/95; PULSE 88; RESP 16; TEMP 36.4; O2SAT 100; BMI 27.1
--- NOTE | 2025-01-22 10:33 | EX.ED.UPPERE ---
HPI History of Present Illness Chief Complaint: Upper Extremity Injury Informant: patient Narrative Narrative: Patient is a 49-year-old female presenting with right shoulder pain. - Reports onset of right shoulder pain about a month ago, initially described as a clicking sensation and feeling off, gradually worsening. Pain significantly worsened last week; yesterday, while attempting to put her hair up, she experienced severe pain that put me on my knees. - Overhead movements especially exacerbate the pain. - Current pain is localized to the posterior & subacromial shoulder; with a previous issue, it was anterior. - Feels as though the shoulder could pop out with certain movements. - Denies known trauma. - Able to keep her elbow at her side without pain; however, lifting the elbow causes discomfort. - Has a history of similar shoulder issues approximately 12 years ago; was informed of a partial tear and advised that rotator cuff surgery might be necessary in the future. - Has not followed up with an lean specialist; primary care physician recently retired, leaving her without a current provider. - Recent hysterectomy in March; expresses reluctance to undergo additional surgeries. [facility] Medical History Gallstones Acute maxillary sinusitis, unspecified Home Medications ?Medication ?Instructions ?Recorded ?Last Taken ?Type hydrochlorothiazide 25 mg tablet 25 mg PO DAILY 03/31/22 01/21/25 History Lactobacillus acidophilus 10 100 mmu cells PO DAILY 01/22/25 01/21/25 History billion cell capsule (Probiotic) diclofenac sodium 75 mg 75 mg PO DAILY 01/22/25 01/21/25 History tablet,delayed release magnesium 1035mg - potassium 99mg 1 tab PO .COMPLEX 01/22/25 01/21/25 History ( MagO7) prednisone 20 mg tablet 40 mg (2 x 20 mg) PO DAILY 6 days 01/22/25 Unknown Rx #12 tabs tirzepatide (weight loss) 15 15 mg subcut .COMPLEX 01/22/25 01/12/25 History mg/0.5 mL subcutaneous pen injector (Zepbound) trazodone 150 mg tablet 150 mg PO QHS 01/22/25 01/21/25 History Allergy/AdvReac Type Severity Reaction Status Date / Time No Known Allergies Allergy Verified 01/22/25 10:16 Surgical History History of delivery Social History Smoking Status: Never smoker alcohol intake: never ROS ROS ED Constitutional Constitutional ED: Denies chills or fever(s) Musculoskeletal Musculoskeletal: Reports extremity pain; Denies neck pain Integumentary Denies Abrasions, rash or wounds Neurologic Neurologic: Denies paresthesias or weakness EXAM Physical Exam Const Vital Signs: 01/22/25 10:16 Temperature 97.6 F L Temperature Source Temporal Pulse Rate 88 Respiratory Rate 16 Blood Pressure 133/95 H Blood Pressure Mean 107 Pulse Ox 100 Oxygen Delivery Method Room Air Positive well nourished and well developed General Appearance ED: well developed and NAD Neck full ROM and supple Back/Spine normal ROM and normal to inspection Extremity Extremity Narrative: Limited range of motion of the right shoulder, she has a mild subacromial tenderness but there are no deformities. No anterior tenderness at the biceps groove and her Yergason is negative. No tenderness at the acromioclavicular joint. She especially has pain with internal rotation against resistance as well as abduction although she is able to abduct to 90 degrees before she stops. Adduction and external rotation are without limitation. Neuro oriented x3, no focal motor deficits and no sensory deficits noted Sensorium / Orientation: alert Psych mental status grossly normal and thought process normal Skin no wounds Rashes: no rashes MDM MDM MDM Narrative Medical decision making narrative: The exam suggests the possibility of rotator cuff pathology, as well as bursitis and calcific tendinitis in the differential. I am not detecting any instability, but her range of motion is fairly limited. She does not appear dislocated. I obtained a three-view X-ray series of the right shoulder to rule out dislocation, fracture, and calcific tendinitis. On my interpretation, the three-view X-ray is normal, with no signs of calcific tendinitis or dislocation. Radiology agrees with this assessment. Given these findings, I believe the patient might benefit from NSAIDs, but I will prescribe a short one-week burst of prednisone to see if that helps, and also refer her to orthopedics. I am providing her with a sling to use as needed. However, I recommended that she not remain in it all day and avoid sleeping in it, using it only for comfort during significant pain. Radiography Diagnostic Testing: Clinical Impression(s) from Imaging Studies Shoulder X-Ray 01/22/25 10:40 IMPRESSION: No fracture or dislocation is identified. Reading [facility] Discharge Plan Triage Chief Complaint: Upper Extremity Injury ED Provider: Hermelindo Marques Dx/Rx/DC Orders Clinical Impression: Acute pain of right shoulder Instructions: ED Shoulder Impingement Syndrome, ED Shoulder Pain, Uncertain Cause Prescriptions: New prednisone 20 mg tablet 40 mg PO DAILY 6 Days Qty: 12 0RF No Action hydrochlorothiazide 25 mg tablet 25 mg PO DAILY Patient Comments: TAKE 1 TABLET BY MOUTH ONCE DAILY trazodone 150 mg tablet 150 mg PO QHS Zepbound 15 mg/0.5 mL pen injector 15 mg subcut .COMPLEX Rx Instructions: 15 mg subcutaneously every other week; magnesium 1035mg - potassium 99mg ( MagO7) 1 tab PO .COMPLEX Rx Instructions: 1 TAB orally 2-3 x weekly; Lactobacillus acidophilus [Probiotic] 10 billion cell capsule 100 mmu cells PO DAILY diclofenac sodium 75 mg tablet,delayed release (DR/EC) 75 mg PO DAILY Patient Comments: pt took one of husbands last night Primary Care Provider: Hiram Moreland Referrals: Edward Fry MD [Med Staff - Active Staff, Orthopedics] - As soon as possible Activity Restrictions/Additional Instructions: - Your right shoulder X-rays showed no fracture, dislocation, or calcific tendon deposits. - Start the one-week burst of prednisone as prescribed. - You may also take [id number] NSAIDs (for example, ibuprofen) as needed to help reduce inflammation and pain. - Use the sling for comfort when your shoulder is very painful, but avoid wearing it all day or while sleeping. - Follow up with an lean specialist (referral provided) for further evaluation, possible MRI, and discussion of injections or other treatments. Print Language: Yemeni Disposition Disposition: Home, Self Care
--- NOTE | 2025-01-22 10:40 | RAD_ITS ---
PROCEDURE: SHOULDER MIN 2 VIEWS 01/22/2025 REASON FOR EXAM: PAIN TECHNIQUE: Procedure Code: RADSH Modality: DX Procedure: SHOULDER MIN 2 VIEWS Right shoulder four views COMPARISON: None FINDINGS: There is no fracture or dislocation. Joint space appears maintained. AC joint is aligned. Mineralization is normal. There is no visible soft tissue abnormality. RAD/Shoulder min 2 Views IMPRESSION: No fracture or dislocation is identified. Reading Location: [facility]
[2025-01-22 12:30] VITALS: BP 109/75; PULSE 62; RESP 16; TEMP 36.4; O2SAT 100
== END 2025-01-22 12:31 | disposition home or self-care (01) ==
PROVIDERS: Emergency Provider Emergency Medicine; PCP Family Medicine; Visit Provider Emergency Medicine
DX: M25.511 Pain in right shoulder (principal); Z90.710 Acquired absence of both cervix and uterus
CPT/HCPCS: 73030; 99283